=== PATIENT | female | born 1975 | race Caucasian/White ===

== ENCOUNTER 2018-07-11 03:16 | Emergency (ER) | payer BC, MEDICAID ==
[2018-07-11] MEDS ORDERED: ASPIRIN 81 MG TABLET, CHEWABLE PO ONE (05:41)
--- NOTE | 2018-07-11 06:24 | RADIOLOGY REPORT (SQ) ---
EXAM DESCRIPTION: XR CHEST 1 VIEW COMPLETED DATE/TME: 07/11/2018 05:41 CLINICAL HISTORY: 43 years, Female, chest pain COMPARISON: April 13, 2016 NUMBER OF VIEWS: One TECHNIQUE: AP view of the chest LIMITATIONS: None. FINDINGS: Lungs are clear. There are no pleural abnormalities. Lung volumes are decreased. Cardiac silhouette is normal size. AICD from a left subclavian approach. IMPRESSION: No acute cardiopulmonary disease. copyright 2010 [employer]- All Rights Reserved
[2018-07-11 06:28] LABS: ABSOLUTE BASOPHILS # (AUTO) 0.1 10^3/uL (0.0-0.2); ABSOLUTE EOSINOPHILS # (AUTO) 0.2 10^3/uL (0.0-0.6); ABSOLUTE LYMPHOCYTES (AUTO) 2.4 10^3/uL (0.5-4.7); ABSOLUTE MONOCYTES (AUTO) 0.8 10^3/uL (0.1-1.4); ABSOLUTE NEUT (AUTO) 8.1 10^3/uL (1.7-8.2); EOSINOPHILS % (AUTO) 1.5 % (0-6); HEMOGLOBIN 14.8 g/dL (12.0-15.5); LYMPHOCYTES % (AUTO) 21.1 % (13-45); MEAN CORPUSCULAR HEMOGLOBIN 30.1 pg (27.0-33.4); MEAN CORPUSCULAR HGB CONC 33.6 g/dL (32.0-36.0); MEAN CORPUSCULAR VOLUME 89 fl (80-97); MONOCYTES % (AUTO) 6.7 % (3-13); PLATELET COUNT 237 10^3/uL (150-450); RED BLOOD COUNT 4.92 10^6/uL (3.72-5.28); RED CELL DISTRIBUTION WIDTH 14.6 % (11.5-14.0); SEGMENTED NEUTROPHILS % (AUTO) 69.7 % (42-78); TOTAL CELLS COUNTED % (AUTO) 100 %; WHITE BLOOD COUNT 11.6 10^3/uL (4.0-10.5)
[2018-07-11 06:41] LABS: ALANINE AMINOTRANSFERASE 23 U/L (9-52); ALKALINE PHOSPHATASE 50 U/L (38-126); ANION GAP 7 (5-19); ASPARTATE AMINO TRANSFERASE 19 U/L (14-36); BILIRUBIN,DIRECT 0.2 mg/dL (0.0-0.4); BILIRUBIN,TOTAL 0.4 mg/dL (0.2-1.3); BLOOD UREA NITROGEN 12 mg/dL (7-20); CALCIUM 9.2 mg/dL (8.4-10.2); CARBON DIOXIDE 24 mmol/L (22-30); CHLORIDE 108 mmol/L (98-107); GLUCOSE 108 mg/dL (75-110); POTASSIUM 4.5 mmol/L (3.6-5.0); TOTAL PROTEIN 6.6 g/dL (6.3-8.2)
--- NOTE | 2018-07-11 08:24 | ER Document Report ---
ED General - General Chief Complaint: Chest Pain Stated Complaint: CHEST PAIN Time Seen by Provider: 07/11/18 06:19 TRAVEL OUTSIDE OF THE [place] IN LAST 30 DAYS: No - HPI Patient complains to provider of: Chest pain Notes: Patient coming in for evaluation of chest pain. Patient states chest pain which she has ongoing approximately 24 hours prior to arrival. Patient currently st ates chest pain-free. Denies any nausea vomiting fevers chills diarrhea with chest pain. Patient denies any exacerbating or relieving factors. Patient otherwise resting comfortably upon my evaluation. Denies any recent travel denies any trauma. Patient does have a history states of an CT in the past states that no clear reason was given for her CT patient denies any drug abuse patient does have an ICD states no firing. Patient does states that she was seen by her primary care provider a few weeks ago he thought she has underlying bronchitis patient states she does smoke intermittently does have some wheezing ongoing patient states she has an albuterol inhaler at the pharmacy that she needs to slat pickler however is not using the bronchodilator therapy - Related Data Allergies/Adverse Reactions: Sulfa (Sulfonamide Antibiotics) Allergy (Verified 07/11/18 06:28) Past Medical History - Social History Smoking Status: Current Every Day Smoker Chew tobacco use (# tins/day): No Frequency of alcohol use: None Drug Abuse: None Family History: Reviewed & Not Pertinent Patient has suicidal ideation: No Patient has homicidal ideation: No Renal/ Medical History: Denies: Hx Peritoneal Dialysis Review of Systems - Review of Systems Constitutional: No symptoms reported EENT: No symptoms reported Cardiovascular: Chest pain Respiratory: No symptoms reported Gastrointestinal: No symptoms reported Genitourinary: No symptoms reported Female Genitourinary: No symptoms reported Musculoskeletal: No symptoms reported Skin: No symptoms reported Hematologic/Lymphatic: No symptoms reported Neurological/Psychological: No symptoms reported -: Yes All other systems reviewed and negative Physical Exam - Vital signs Vitals: Temp Pulse Resp BP Pulse Ox 97.7 F 81 16 98/68 L 97 07/11/18 03:24 07/11/18 03:24 07/11/18 03:24 07/11/18 03:24 07/11/18 03:24 Interpretation: Normal - General General appearance: Appears well, Alert - HEENT Head: Normocephalic, Atraumatic Eyes: Normal Pupils: PERRL - Respiratory Respiratory status: No respiratory distress Chest status: Nontender Breath sounds: Wheezing Chest palpation: Normal - Cardiovascular Rhythm: Regular Heart sounds: Normal auscultation Murmur: No - Abdominal Inspection: Normal Distension: No distension Bowel sounds: Normal Tenderness: Nontender Organomegaly: No organomegaly - Back Back: Normal, Nontender - Extremities General upper extremity: Normal inspection, Nontender, Normal color, Normal ROM, Normal temperature General lower extremity: Normal inspection, Nontender, Normal color, Normal ROM, Normal temperature, Normal weight bearing. No: Mariela's sign - Neurological Neuro grossly intact: Yes Cognition: Normal Orientation: AAOx4 Néstor Coma Scale Eye Opening: Spontaneous [place] Coma Scale Verbal: Oriented Néstor Coma Scale Motor: Obeys Commands Néstor Coma Scale Total: 15 Speech: Normal Motor strength normal: LUE, RUE, LLE, RLE Sensory: Normal - Psychological Associated symptoms: Normal affect, Normal mood - Skin Skin Temperature: Warm Skin Moisture: Dry Skin Color: Normal Course - Re-evaluation Re-evalutation: 07/11/18 14:24 Patient declined breathing treatment for her wheezing the patient has atypical chest pain as the patient's chest pain is not suggestive of pulmonary embolus, cardiac ischemia, aortic dissection, or other serious etiology. Given the extremely low risk of these diagnoses further testing and evaluation for these possibilities does not appear to be indicated at this time. The patient has been instructed to return if the symptoms worsen or change in any way. 07/11/18 14:25 - Vital Signs Vital signs: Temp Pulse Resp BP Pulse Ox 97.7 F 81 16 104/69 92 07/11/18 03:24 07/11/18 03:24 07/11/18 08:01 07/11/18 08:01 07/11/18 08:01 - Laboratory Result Diagrams: 07/11/18 06:02 07/11/18 06:02 Laboratory results interpreted by me: 07/11/18 07/11/18 06:02 06:02 WBC 11.6 H RDW 14.6 H Chloride 108 H Discharge - Discharge Clinical Impression: Chest pain of unknown etiology, Wheezing Condition: Good Disposition: HOME, SELF-CARE Instructions: Chest Wall Pain ([facility]), Chest Pain of Unclear Cause ([facility]), Reflux Disease (GERD) ([facility]) Additional Instructions: Your evaluation today does not show any signs of cardiac damage your chest x-ray is normal. I highly recommend she follow-up with your primary care physician continue take your home medications as previously prescribed. I recommend getti ng your inhaler feel and using this as directed return to ER symptoms worsen. Forms: Smoking Cessation Education
[2018-07-11 08:44] LABS: APPEARANCE,URINE SLIGHTLY-CLOUDY; BILIRUBIN,URINE NEGATIVE (NEGATIVE); COLOR,URINE YELLOW; GLUCOSE, URINE NEGATIVE (NEGATIVE); KETONES,URINE NEGATIVE (NEGATIVE); LEUKOCYTE ESTERASE,URINE NEGATIVE (NEGATIVE); NITRITE,URINE NEGATIVE (NEGATIVE); PROTEIN,URINE NEGATIVE (NEGATIVE); URINE SPECIFIC GRAVITY 1.013; UROBILINOGEN,URINE NEGATIVE mg/dL (<2.0)
[2018-07-11 08:52] LABS: URINE AMPHETAMINES SCREEN NEGATIVE; URINE BARBITURATES SCREEN NEGATIVE; URINE BENZODIAZEPINES SCREEN NEGATIVE; URINE COCAINE SCREEN NEGATIVE; URINE MARIJUANA (THC) SCREEN NEGATIVE; URINE METHADONE SCREEN NEGATIVE; URINE PHENCYCLIDINE SCREEN NEGATIVE
[2018-07-11 08:53] VITALS: BP 104/69
--- NOTE | 2018-07-11 08:58 | EKG REPORT ---
SEVERITY:- ABNORMAL ECG - SINUS RHYTHM INFERIOR INFARCT, AGE INDETERMINATE ABNORMAL T, CONSIDER ISCHEMIA, ANT-LAT LEADS : Confirmed by: Nasra Mccord MD 11-Jul-2018 08:58:17
== END 2018-07-11 09:04 | disposition home or self-care (01) ==
LOC: ER 03:16
DX: R07.9 Chest pain, unspecified (principal); R06.2 Wheezing; F17.200 Nicotine dependence, unspecified, uncomplicated
CPT/HCPCS: 36415; 71045; 80053; 80307; 81001; 84484; 84703; 85025; 93005; 93010; 99285

== ENCOUNTER 2019-02-17 23:37 | Emergency (ER) | payer BC ==
[2019-02-18] MEDS ORDERED: PREDNISONE 20 MG TABLET PO ONE (00:11)
[2019-02-18] MEDS ORDERED: IPRATROPIUM/ALBUTEROL 0.5-2.5 MG/3 ML AMPUL NEB ONE ×2 (00:11→01:22)
--- NOTE | 2019-02-18 00:14 | ER Document Report ---
ED General - General Chief Complaint: Cough Stated Complaint: ACHES/DIFFICULTY BREATHING Time Seen by Provider: 02/18/19 00:02 Notes: Patient is a 43-year-old female that comes emergency department for chief complaint of sharp pain along side of her chest along her ribs, cough, shortness of breath, congestion, sore throat, and chills. Symptoms have been going on for the past 2 days. 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 She actually has a complicated medical history including NC x2, AICD, hypertension. She was seen by her primary care, given a treatment, sent home with an inhaler. She states symptoms have worsened since then. TRAVEL OUTSIDE OF THE [place] IN LAST 30 DAYS: No - Related Data Allergies/Adverse Reactions: Sulfa (Sulfonamide Antibiotics) Allergy (Verified 02/17/19 23:39) Past Medical History - General Information source: Patient - Social History Smoking Status: Current Every Day Smoker Smoking Education Provided: Yes - <3 min Drug Abuse: None Lives with: Family Family History: Reviewed & Not Pertinent Patient has suicidal ideation: No Patient has homicidal ideation: No - Past Medical History Cardiac Medical History: Reports: Hx Heart Attack - x2, Hx Hypertension Pulmonary Medical History: Reports: Hx Asthma Renal/ Medical History: Denies: Hx Peritoneal Dialysis Past Surgical History: Reports: Hx Breast Surgery, Hx Cardiac Catheterization, Hx Cardiac Surgery - defibrillator, Hx Section, Hx Cholecystectomy Review of Systems - Review of Systems Constitutional: See HPI EENT: See HPI Cardiovascular: See HPI Respiratory: See HPI Gastrointestinal: No symptoms reported Genitourinary: No symptoms reported Female Genitourinary: No symptoms reported Musculoskeletal: See HPI Skin: No symptoms reported Hematologic/Lymphatic: No symptoms reported Neurological/Psychological: No symptoms reported Physical Exam - Vital signs Vitals: Temp Pulse Resp BP Pulse Ox 98 F 96 18 111/77 96 02/17/19 23:39 02/17/19 23:39 02/17/19 23:39 02/17/19 23:39 02/17/19 23:39 - Notes Notes: GENERAL: Slightly ill-appearing but nontoxic HEAD: Normocephalic, atraumatic. EYES: Pupils equal, round, and reactive to light. Extraocular movements intact. ENT: Oral mucosa moist, tongue midline. Oropharynx with postnasal drip and mild erythema. Airway patent. Mild nasal congestion, tenderness over bilateral maxillary sinuses, ears unremarkable. NECK: Full range of motion. Supple. Trachea midline. LUNGS: Scattered expiratory wheezes, no tachypnea or distress, no rales or rhonchi. HEART: Regular rate and rhythm. No murmur ABDOMEN: Soft, non-tender. Non-distended. Bowel sounds present in all 4 quadrants. GENITOURINARY: Deferred EXTREMITIES: Moves all 4 extremities spontaneously. No edema, normal radial and dorsalis pedis pulses bilaterally. No cyanosis. BACK: no cervical, thoracic, lumbar midline tenderness. No saddle anesthesia, normal distal neurovascular exam. Moves all extremities in full range of motion. NEUROLOGICAL: Alert and oriented x3. Normal speech. Cranial nerves II through XII grossly intact. PSYCH: Normal affect, normal mood. SKIN: Warm, dry, normal turgor. No rashes or lesions noted. Course - Re-evaluation Re-evalutation: Initially patient with a lot of wheezing throughout, however there are no rales or rhonchi. She is not in respiratory distress, she is not tachycardic or hypoxic. Patient also has had tenderness over the sinuses (maxillary), postnasal drainage with mild erythema of the posterior pharynx. She is complaining of bilateral pain over her ribs as well. No coughing on my evaluation. EKG, chest x-ray, CBC, chemistry, troponin without acute findings. test is negative. Patient was given steroids, DuoNeb, on reevaluation wheezing is significantly improved but not completely resolved, she will be given additional DuoNeb's. She is now coughing up some productive sputum. Discussed with patient. Because of her sinusitis with notable pain on exam, productive cough, she will be covered with doxycycline, placed on steroids, provided with spacer for her inhaler, and provided with work-release. She asks for something for the pain in her ribs and decision was made to provide her with Flexeril as well. Discussed smoking cessation, patient states she is already cutting down and planning to quit. Discussed follow-up and return precautions. Patient states understanding and agreement. - Vital Signs Vital signs: Temp Pulse Resp BP Pulse Ox 97.5 F 107 H 16 104/64 96 02/18/19 02:00 02/18/19 02:00 02/18/19 02:00 02/18/19 02:00 02/18/19 02:00 - Laboratory Result Diagrams: 02/18/19 00:27 02/18/19 00:27 Laboratory results interpreted by me: 02/18/19 02/18/19 00:27 00:27 Hgb 16.0 H Chloride 108 H Est GFR (MDRD) Non-Af 58 L Glucose 118 H - EKG Interpretation by Me Additional EKG results interpreted by me: EKG shows sinus rhythm at a rate of 85, left axis deviation, QTC 443. Borderline T wave inversions in the anterior leads. No significant change from prior. Discharge - Discharge Clinical Impression: Wheezing, Cough, Rib pain, Productive cough, Tobacco abuse Sinusitis Qualifiers: Sinusitis location: maxillary Chronicity: acute Recurrence: non-recurrent Qualified Code(s): J01.00 - Acute maxillary sinusitis, unspecified Condition: Stable Disposition: HOME, SELF-CARE Additional Instructions: Your chest x-ray does not show any concerning abnormality, your laboratory work- up is reassuring. Your evaluation is consistent with sinusitis and developing bronchitis. Take prednisone as prescribed, avoid carbohydrates while taking this medication. Take the antibiotics as prescribed. Use your inhaler as prescribed. Use the flexor muscle relaxer if needed for the pain along your ribs, especially use this at night if needed. Follow-up with primary care. Stop smoking. Return if you worsen including fever, severe headache, difficulty breathing, or any other concerning or worsening symptoms. Prescriptions: Prednisone [Deltasone 20 mg Tablet] 3 tab PO DAILY 5 Days tablet Doxycycline Hyclate 100 mg PO BID #14 capsule Cyclobenzaprine HCl [Flexeril 5 mg Tablet] 1 - 2 tab PO TID PRN #15 tablet PRN Reason: Forms: Return to Work
[2019-02-18 00:43] LABS: ABSOLUTE BASOPHILS # (AUTO) 0.1 10^3/uL (0.0-0.2); ABSOLUTE EOSINOPHILS # (AUTO) 0.3 10^3/uL (0.0-0.6); ABSOLUTE LYMPHOCYTES (AUTO) 2.6 10^3/uL (0.5-4.7); ABSOLUTE MONOCYTES (AUTO) 1.3 10^3/uL (0.1-1.4); ABSOLUTE NEUT (AUTO) 5.9 10^3/uL (1.7-8.2); BASOPHILS % (AUTO) 0.9 % (0-2); EOSINOPHILS % (AUTO) 2.5 % (0-6); HEMATOCRIT 46.7 % (36.0-47.0); LYMPHOCYTES % (AUTO) 25.7 % (13-45); MEAN CORPUSCULAR HEMOGLOBIN 30.5 pg (27.0-33.4); MEAN CORPUSCULAR HGB CONC 34.2 g/dL (32.0-36.0); MEAN CORPUSCULAR VOLUME 89 fl (80-97); MONOCYTES % (AUTO) 12.5 % (3-13); PLATELET COUNT 215 10^3/uL (150-450); RED BLOOD COUNT 5.24 10^6/uL (3.72-5.28); RED CELL DISTRIBUTION WIDTH 13.3 % (11.5-14.0); SEGMENTED NEUTROPHILS % (AUTO) 58.4 % (42-78); TOTAL CELLS COUNTED % (AUTO) 100 %; WHITE BLOOD COUNT 10.1 10^3/uL (4.0-10.5)
--- NOTE | 2019-02-18 00:56 | RADIOLOGY REPORT (SQ) ---
EXAM DESCRIPTION: XR CHEST 2 VIEWS COMPLETED DATE/TME: 02/18/2019 00:11 CLINICAL HISTORY: 43 years, Female, rib pain, cough, shortness of breath Comparison: None FINDINGS: No focal lung consolidation. No pleural effusion. No pneumothorax. Cardiac and mediastinal silhouette is unremarkable. AICD from a left subclavian approach. No acute osseous abnormality. Soft tissues are unremarkable. IMPRESSION: No acute findings. No focal lung consolidation.
[2019-02-18 01:03] LABS: ANION GAP 10 (5-19); BLOOD UREA NITROGEN 9 mg/dL (7-20); CALCIUM 9.3 mg/dL (8.4-10.2); CARBON DIOXIDE 22 mmol/L (22-30); CHLORIDE 108 mmol/L (98-107); GLUCOSE 118 mg/dL (75-110); POTASSIUM 4.2 mmol/L (3.6-5.0)
[2019-02-18 02:02] VITALS: BP 104/64
--- NOTE | 2019-02-18 14:23 | EKG REPORT ---
SEVERITY:- ABNORMAL ECG - SINUS RHYTHM PROBABLE LEFT ATRIAL ABNORMALITY LEFT ANTERIOR FASCICULAR BLOCK BORDERLINE R WAVE PROGRESSION, ANTERIOR LEADS NONSPECIFIC T ABNORMALITIES, ANTERIOR LEADS INFERIOR INFARCT AGE INDETERMINATE : Confirmed by: Melissa Weiss 18-Feb-2019 14:23:14
== END 2019-02-18 02:02 | disposition home or self-care (01) ==
LOC: ER 23:37
DX: J45.909 Unspecified asthma, uncomplicated (principal); J01.00 Acute maxillary sinusitis, unspecified; R06.02 Shortness of breath; R07.81 Pleurodynia; R05 Cough; J02.9 Acute pharyngitis, unspecified; R68.83 Chills (without fever); F17.200 Nicotine dependence, unspecified, uncomplicated; R09.82 Postnasal drip; R09.81 Nasal congestion; I10 Essential (primary) hypertension; I25.2 Old myocardial infarction; Z95.810 Presence of automatic (implantable) cardiac defibrillator; Z88.2 Allergy status to sulfonamides
CPT/HCPCS: 93005; 94640 ×2; 99285; 36415; 84703; 85025; 80048; 84484; 71046; 93010; J7512; J7620